=== PATIENT | male | born 1960 | race African-American/Black ===

== ENCOUNTER 2018-07-17 09:52 | Emergency (ER) | payer MEDICAID, OTHER ==
[~2018-07-17] VITALS: Ht 188 cm; Wt 106.6 kg
[2018-07-17 10:10] VITALS: BP 167/94
[2018-07-17] MEDS ORDERED: KETOROLAC TROMETH 60MG/2ML VIAL IM ONE (11:00)
[2018-07-17] MEDS ORDERED: TRIAMCINOLONE 40MG/ML 1ML VIAL IM ONE (11:15)
== END 2018-07-17 11:54 | disposition home or self-care (01) ==
LOC: ER 09:58
DX: M54.41 Lumbago with sciatica, right side (principal)
CPT/HCPCS: 72100; 96372; 99283; J1885; J3301

== ENCOUNTER 2018-11-08 11:52 | Emergency (ER) | payer MEDICAID ==
[~2018-11-08] VITALS: Ht 188 cm; Wt 108.9 kg
[2018-11-08] MEDS ORDERED: SODIUM CHLORIDE 0.9% 1,000 ML IVB ONE (12:20)
[2018-11-08] MEDS ORDERED: FAMOTIDINE (10MG/ML) 2ML VL IV ONE ×2 (12:30→14:34)
[2018-11-08 12:49] LABS: Urine WBC None Seen /hpf (0 - 3)
[2018-11-08 13:08] LABS: Basophils # (auto) 0.1 uL; Eosinophils # (auto) 0.1 uL; Eosinophils % (auto) 1.9 % (0.0-7.0); Hematocrit 43.7 % (41.0-53.0); Hemoglobin 14.1 g/dL (13.5-17.5); Lymphocytes # (auto) 2.1 uL; Lymphocytes % (auto) 30.4 % (10.0-50.0); Mean Corpuscular Hemoglobin 28.1 pg (28.0-32.0); Mean Corpuscular Hgb Conc. 32.4 g/dL (32.0-36.0); Mean Corpuscular Volume 86.9 fL (80.0-100.0); Monocytes # (auto) 0.5 uL; Monocytes % (auto) 7.6 % (0.0-12.0); Neutrophils # (auto) 4.1 uL; Neutrophils % (auto) 59.1 % (37.0-80.0); Nucleated Red Blood Cells % 0.1 %; Platelet Count (auto) 216 10^3/uL (140-450); Red Blood Cells 5.03 10^6/uL (4.5-5.90); Red Cell Distribution Width 13.3 % (11.8-14.3)
[2018-11-08 13:20] VITALS: BP 148/85
[2018-11-08 13:28] LABS: Alanine Aminotransferase 22 U/L (16-61); Albumin 3.6 g/dL (3.4-5.0); Anion Gap 7 (5-15); Aspartate Aminotransferase 15 U/L (15-37); BUN/Creatinine Ratio 9.3; Blood Urea Nitrogen 10 mg/dL (7-18); Calcium 8.7 mg/dL (8.5-10.1); Carbon Dioxide 27 mmol/L (21-32); Chloride 108 mmol/L (98-107); GFR African American 91 mL/min; GFR Non-African American 75 mL/min; Glucose 81 mg/dL (74-106); Lipase 110 U/L (73-393); Potassium 3.6 mmol/L (3.5-5.1); Sodium 142 mmol/L (136-145)
[2018-11-08 13:33] LABS: Alkaline Phosphatase 76 U/L (45-117); Bilirubin, Total 0.7 mg/dL (0.2-1.0); Total Protein 7.7 g/dL (6.4-8.2)
[2018-11-08 16:21] LABS: Urine Bacteria NONE SEEN /hpf (None Seen); Urine Blood Negative /uL (Negative); Urine Mucus FEW (None Seen); Urine Specific Gravity 1.019 (1.001-1.035)
== END 2018-11-08 15:30 | disposition home or self-care (01) ==
LOC: ER 11:52 → TELE 13:28 → UNDOADMIN 13:28 → ER 15:17
DX: R19.7 Diarrhea, unspecified (principal); R10.31 Right lower quadrant pain; R10.32 Left lower quadrant pain
CPT/HCPCS: 36415; 74176; 80053; 81001; 83690; 84484; 85025; 93005; 94761; 96361; 96374; 99284; J3490; J7030

== ENCOUNTER 2019-05-08 05:59 | Emergency (ER) | payer SELFPAY ==
[~2019-05-08] VITALS: Ht 188 cm; Wt 111.6 kg
[2019-05-08 07:01] VITALS: BP 168/91
[2019-05-08] MEDS ORDERED: KETOROLAC TROMETH 60MG/2ML VIAL IM ONE (07:45)
== END 2019-05-08 08:35 | disposition home or self-care (01) ==
LOC: ER 05:59
DX: M54.5 Low back pain (principal)
CPT/HCPCS: 72100; 96372; 99283; J1885

== ENCOUNTER 2022-06-25 10:37 | Emergency (ER) | payer OTHER ==
[~2022-06-25] VITALS: Ht 188 cm; Wt 123.7 kg
[2022-06-25 10:55] VITALS: BP 159/77
[2022-06-25] MEDS ORDERED: KETOROLAC TROMETH 60MG/2ML VIAL IM ONE (11:45)
[2022-06-25] MEDS ORDERED: HYDR-4902 PO (13:19)
[2022-06-25] MEDS ORDERED: IBUP800T26 PO (13:19)
== END 2022-06-25 13:33 | disposition home or self-care (01) ==
LOC: ER 10:37
DX: M47.896 Other spondylosis, lumbar region (principal)
CPT/HCPCS: 72100; 96372; 99283; J1885